=== PATIENT | female | born 2000 | race Caucasian/White ===

== ENCOUNTER 2018-02-18 14:39 | Emergency (ER) | payer OTHER ==
[2018-02-18 14:51] VITALS: TEMP 36.4; Ht 162.6 cm
[2018-02-18] MEDS ORDERED: SODIUM CHLORIDE 0.9% 1000ML 1,000 ML IV STA (15:51)
[2018-02-18] MEDS ORDERED: KETOROLAC TROMETHAMINE 30 MG/ML VIAL IV STA (15:51)
--- NOTE | 2018-02-18 16:00 | EMERGENCY ROOM VISIT NOTE ---
ED Visit Note First contact with patient: 15:38 CHIEF COMPLAINT: Bad menstrual cramps HISTORY OF PRESENTING ILLNESS: This is a 17-year-old female who presents to the emergency department with complaint of severe menstrual cramps. She states that her period began this morning, and she has been having abdominal cramping on and off. He states at one point the pain became so severe that it was hard to move, and it also caused her to become dizzy and nearly passed out. She states she also vomited once during the severe pain. She states that her periods are usually regular, and she reports a history of heavy periods and painful cramps, but states she has never had pain quite this severe before. She has taken Tylenol for the pain with some improvement. She currently states that her pain is a little improved, reports as crampy in nature and occasionally sharp and stabbing, across the entire lower abdomen, 5/10. Denies any fevers or chills, headaches, chest pain, shortness of breath, back pain, diarrhea or constipation, bloody or black stools, urinary symptoms, or unusual rash. REVIEW OF SYSTEMS: A complete 10 point review of systems was reviewed with the patient with pertinent positives and negatives as per history of present illness. All else were negative. PAST MEDICAL HISTORY: No significant past medical or surgical history. SOCIAL HISTORY: Lives at home. She denies tobacco use. ALLERGIES: No known allergies. PHYSICAL EXAM: CONSTITUTIONAL: Pleasant and cooperative. No acute distress. Well-hydrated, well appearing and well nourished. HEENT: Normocephalic, atraumatic. Pupils equal, round and reactive to light, EOMI. TMs normal. Pharynx normal. NECK: Supple, full active range of motion without discomfort. RESPIRATORY: Clear to auscultation bilaterally with no wheezing, crackles, rhonchi or stridor. Equal expansion bilaterally. CARDIOVASCULAR: Regular rate and rhythm with no murmurs, rubs or gallops. Normal peripheral perfusion. No edema. GASTROINTESTINAL: Mildly tender to palpation in the suprapubic area only. No CVA tenderness bilaterally. Soft and nondistended. No palpable masses or HSM. Bowel sounds present in all quadrants. PELVIC EXAM: Deferred per patient request. MUSCULOSKELETAL: Full range of motion of all joints without discomfort. INTEGUMENTARY: No rash or other significant dermatologic conditions noted. NEUROLOGIC: Alert and oriented X 4 with normal affect. Normal strength and sensation in all 4 extremities. No focal neurologic deficits noted. Normal speech. Normal gait observed ED COURSE AND MEDICAL DECISION MAKING: CC: Patient presenting with complaint of bad menstrual cramps DIFFERENTIAL DIAGNOSIS: Includes, but not limited to dysmenorrhea, ovarian cyst /rupture, ovarian torsion, ectopic , UTI, endometriosis, PID, among others. INTERPRETATION OF LABS: Mild leukocytosis, no anemia, normal platelets, no significant electrolyte abnormalities, normal renal function. UA appears contaminated, culture pending. Urine negative. IMAGING: PELVIC ULTRASOUND, TRANSABDOMINAL HISTORY: eval ovarian cyst, torsion, rupture COMPARISON: None. FINDINGS: Uterus: 7.8 x 4.2 x 3.0 cm. No uterine masses. There appears to be a tampon within the vagina. Endometrial stripe: 2 mm in thickness. Right ovary: Normal in size and demonstrates normal color flow. Left ovary: Normal in size and demonstrates normal color flow. Miscellaneous:Trace fluid within the right adnexa. IMPRESSION: Trace pelvic free fluid which is likely physiologic. Otherwise, no significant abnormality within the pelvis. MEDICATION RECONCILIATION: I attest that I have personally reviewed the patient 's current medication list. INITIAL VITAL SIGNS REVIEW: I reviewed the patient's initial vital signs and interpret them as follows: T: Afebrile; BP: Normotensive; HR: Within normal limit; RR: Within normal limits; Pulse Ox: Within normal limits on room. Blood pressure screening: The patient was found to have normal blood pressure on screening and does not require follow-up for repeat blood pressure check. SUMMARY: Patient was evaluated at bedside, history and physical exam performed. Patient is alert and oriented, in no acute distress, resting calmly in stretcher. Patient has mild tenderness to palpation over the suprapubic area, the abdomen is otherwise nontender. No acute abdomen. Patient does not appear significantly dehydrated or anemic. Vital signs are stable and she is afebrile. Orders were placed at bedside for labs, UA and urine , IV fluids for hydration as a precaution, IV Toradol for pain, pelvic ultrasound to evaluate for ovarian pathology. Patient discussed with Dr. Joiner, who agrees with my assessment and plan. Labs and imaging reviewed as above, no acute abnormalities. She is not . Patient reassessed multiple times throughout ED stay, she is remained stable, and states that her pain is greatly improved after the Toradol. I suspect patient's symptoms are primarily from menstrual cramps, given her history of bad menstrual cramps in the past. I did discuss concerns for intermittent ovarian torsion, and symptoms that should prompt immediate return for reevaluation. Patient was updated on all results and plan for discharge, she was encouraged to follow closely with her PCP and was also provided with referral information for gynecology to get established with a [employer] provider. Patient was also given strict return precautions should her symptoms worsen, she verbalized understanding. Patient was discharged home in stable condition and ambulatory. Problem List Medical Problems: (1) No known health problems Status: Chronic Social History Problems: (1) Adopted Status: Chronic Current/Historical Medications No Active Prescriptions or Reported Meds Allergies Coded Allergies: No Known Allergies (Unverified , 07/20/13) Vital Signs Date Time Temp Pulse Resp B/P (MAP) Pulse Ox O2 Delivery O2 Flow Rate FiO2 02/18/18 19:47 65 16 98/60 100 02/18/18 17:29 66 18 93/57 100 Room Air 02/18/18 14:51 36.4 60 18 112/73 100 Room Air Laboratory Results 02/18/18 16:14 Red Blood Count 4.80, Mean Corpuscular Volume 85.8, Mean Corpuscular Hemoglobin 30.2, Mean Corpuscular Hemoglobin Concent 35.2, Mean Platelet Volume 10.1, Neutrophils (%) (Auto) 87.6, Lymphocytes (%) (Auto) 7.2, Monocytes (%) (Auto) 4.9, Eosinophils (%) (Auto) 0.0, Basophils (%) (Auto) 0.1, Neutrophils # (Auto) 9.93, Lymphocytes # (Auto) 0.81, Monocytes # (Auto) 0.55, Eosinophils # (Auto) 0.00, Basophils # (Auto) 0.01 02/18/18 16:14 Test 02/18/18 16:14 02/18/18 16:15 White Blood Count 11.32 K/uL (4.8-10.8) Red Blood Count 4.80 M/uL (4.2-5.4) Hemoglobin 14.5 g/dL (12.0-16.0) Hematocrit 41.2 % (37-47) Mean Corpuscular Volume 85.8 fL (80-100) Mean Corpuscular Hemoglobin 30.2 pg (25-34) Mean Corpuscular Hemoglobin Concent 35.2 g/dl (32-36) Platelet Count 190 K/uL (130-400) Mean Platelet Volume 10.1 fL (7.4-10.4) Neutrophils (%) (Auto) 87.6 % Lymphocytes (%) (Auto) 7.2 % Monocytes (%) (Auto) 4.9 % Eosinophils (%) (Auto) 0.0 % Basophils (%) (Auto) 0.1 % Neutrophils # (Auto) 9.93 K/uL (1.4-6.5) Lymphocytes # (Auto) 0.81 K/uL (1.2-3.4) Monocytes # (Auto) 0.55 K/uL (0.11-0.59) Eosinophils # (Auto) 0.00 K/uL (0-0.5) Basophils # (Auto) 0.01 K/uL (0-0.2) RDW Standard Deviation 41.0 fL (36.4-46.3) RDW Coefficient of Variation 13.0 % (11.5-14.5) Immature Granulocyte % (Auto) 0.2 % Immature Granulocyte # (Auto) 0.02 K/uL (0.00-0.02) Anion Gap 8.0 mmol/L (3-11) Estimated GFR () 111.9 Estimated GFR (Non- 96.6 BUN/Creatinine Ratio 10.5 (10-20) Calcium Level 9.2 mg/dl (8.5-10.1) Urine Color DK YELLOW Urine Appearance CLOUDY (CLEAR) Urine pH 6.5 (4.5-7.5) Urine Specific [place] 1.039 (1.000-1.030) Urine Protein 2+ (NEG) Urine Glucose (UA) NEG (NEG) Urine Ketones TRACE (NEG) Urine Occult Blood 1+ (NEG) Urine Nitrite NEG (NEG) Urine Bilirubin NEG (NEG) Urine Urobilinogen NEG (NEG) Urine Leukocyte Esterase NEG (NEG) Urine WBC (Auto) 1-5 /hpf (0-5) Urine RBC (Auto) 5-10 /hpf (0-4) Urine Hyaline Casts (Auto) /lpf (0-5) Urine Epithelial Cells (Auto) >30 /lpf (0-5) Urine Bacteria (Auto) 1+ (NEG) Urine Renal Epithelial Cells 5-10 /lpf (0-5) Urine Pathogenic Casts /lpf (0) Urine Test NEG (NEG) Medications Administered Medications (Trade) Dose Ordered Sig/Ling Route Start Time Stop Time Status Last Admin Dose Admin Ketorolac Tromethamine (Toradol Inj) 15 mg NOW STAT IV 02/18/18 15:51 02/18/18 15:54 DC 02/18/18 16:18 15 MG Sodium Chloride 1,000 ml @ 999 mls/hr Q1H1M STAT IV 02/18/18 15:51 02/18/18 16:51 DC 02/18/18 16:17 999 MLS/HR Departure Information Impression Primary Impression: Dysmenorrhea Dispostion Home / Self-Care Condition GOOD Prescriptions No Active Prescriptions or Reported Meds Referrals Mary Lezama,P.AAnthony (PCP) Memo Teixeira M.D. Patient Instructions ED Cramping Menstrual, [facility] Additional Instructions You have been evaluated and treated in the Emergency Department today for your menstrual cramps and pelvic pain. Laboratory results and imaging studies have ruled out any emergent causes for your symptoms which would warrant admission or surgery. For pain control, you can use the following [id number] medicines (if >12 yo): - Regular strength (325mg/tab) Tylenol (acetaminophen) 2 tabs every 6 hours as needed. Do not exceed 10 tablets in a 24 hour period. Avoid taking more than 3000 mg of Tylenol per day. This includes any other sources of acetaminophen you may take on a regular basis. - Regular strength (200 mg/tab) Advil (ibuprofen) 3 tabs every 6 hours as needed. Do not exceed a dose of 2400 mg per day. You may apply a heating pad to your abdomen for comfort. Drink plenty of fluids to stay well hydrated. Please follow-up with your Primary Care Provider in the next few days. You have also been provided with referral information for a mathematical scientist, please call for an appointment. Return to the emergency department for severe worsening abdominal or back pain, persistent heavy bleeding (soaking through 2 or more pads/tampons per hour), fevers > 101.5, severe dizziness or passing out, or any other concerns. Work Instructions Return To Work: 2 days
[2018-02-18 16:21] LABS: BASO % 0.1 %; BASO ABS # 0.01 K/uL (0-0.2); HEMATOCRIT 41.2 % (37-47); HEMOGLOBIN 14.5 g/dL (12.0-16.0); IG# 0.02 K/uL (0.00-0.02); LYMPH % 7.2 %; LYMPH ABS # 0.81 K/uL (1.2-3.4); MEAN CELL VOLUME 85.8 fL (80-100); MEAN CORPUSCULAR HEMOGLOBIN 30.2 pg (25-34); MEAN CORPUSCULAR HGB CONC 35.2 g/dl (32-36); MEAN PLATELET VOLUME 10.1 fL (7.4-10.4); MONO % 4.9 %; MONO ABS # 0.55 K/uL (0.11-0.59); NEUT % 87.6 %; NEUT ABS # 9.93 K/uL (1.4-6.5); PLATELET COUNT 190 K/uL (130-400); WHITE BLOOD COUNT 11.32 K/uL (4.8-10.8)
[2018-02-18 16:38] LABS: BLOOD UREA NITROGEN 9 mg/dl (7-18); CALCIUM 9.2 mg/dl (8.5-10.1); CARBON DIOXIDE 25 mmol/L (21-32); CREATININE 0.87 mg/dl (0.60-1.20); GLUCOSE 107 mg/dl (70-99); POTASSIUM 3.6 mmol/L (3.5-5.1); SODIUM 138 mmol/L (136-145)
--- NOTE | 2018-02-18 18:22 | DIAGNOSTIC IMAGING REPORT ---
PELVIC ULTRASOUND, TRANSABDOMINAL HISTORY: eval ovarian cyst, torsion, rupture COMPARISON: None. FINDINGS: Uterus: 7.8 x 4.2 x 3.0 cm. No uterine masses. There appears to be a tampon within the vagina. Endometrial stripe: 2 mm in thickness. Right ovary: Normal in size and demonstrates normal color flow. Left ovary: Normal in size and demonstrates normal color flow. Miscellaneous:Trace fluid within the right adnexa. IMPRESSION: Trace pelvic free fluid which is likely physiologic. Otherwise, no significant abnormality within the pelvis. Electronically signed by: Gwyn Vieira M.D. 02/18/2018 6:21 PM Dictated Date/Time: 02/18/2018 6:15 PM
[2018-02-18 19:47] VITALS: BP 98/60; PULSE 65; O2SAT 100
== END 2018-02-18 19:48 | disposition home or self-care (01) ==
LOC: C.EDB 14:42 → C.EDA 19:48
DX: N94.6 Dysmenorrhea, unspecified (principal)